=== PATIENT | female | born 1940 | race Caucasian/White ===

== ENCOUNTER 2018-03-04 08:16 | Outpatient (CLI) | payer MEDICARE, BC, SELFPAY ==
[2018-03-04 14:55] LABS: PROTEIN < 6.0 mg/dL
[2018-03-04 14:57] LABS: COMMENT (LAB VIEW ONLY) 20.59 mg/dL
== END 2018-03-04 08:36 ==
PROVIDERS: PCP Family Medicine; Visit Provider Obstetrics & Gynecology Gynecologic Oncology
DX: C56.9 Malignant neoplasm of unspecified ovary (principal)
CPT/HCPCS: 82565; 84156

== ENCOUNTER 2018-03-14 02:15 | Outpatient (CLI) | payer MEDICARE, BC, SELFPAY ==
[2018-03-14 08:59] LABS: Abs Immature Grans 0.02 k/cumm (0.0-0.09); Absolute Basophil Count 0.01 k/cumm (0.0-0.2); Absolute Eosinophil Count 0.18 k/cumm (0.0-0.7); Absolute Lymphocyte Count 1.22 k/cumm (1.2-3.4); Absolute Monocyte Count 0.04 k/cumm (0.11-0.7); Basophils % 0.3; Eosinophils % 6.1; HCT 33.9 % (36.0-46.0); HGB 10.6 g/dL (12.0-15.5); Immature Grans % 0.7; Lymphocytes % 41.1; Mean Corp. HGB Concentration 31.3 g/dL (32.0-36.0); Mean Corpuscular Hemoglobin 25.1 pg (27.0-33.0); Mean Corpuscular Volume 80.3 fL (80-95); Monocytes % 1.3; Neutrophils % 50.5; Platelet Count 246 x1000/uL (130-400); RBC 4.22 m/cumm (4.00-5.20); RBC Distribution Width 13.7 % (11.7-14.6); White Blood Cell Count 2.97 k/cumm (4.4-10.8)
== END 2018-03-14 02:35 ==
PROVIDERS: PCP Family Medicine; Visit Provider Obstetrics & Gynecology Gynecologic Oncology
DX: C56.9 Malignant neoplasm of unspecified ovary (principal)
CPT/HCPCS: 36415; 85025

== ENCOUNTER 2018-03-21 01:15 | Outpatient (CLI) | payer MEDICARE, BC, SELFPAY ==
[2018-03-21 09:22] LABS: Abs Immature Grans 0.02 k/cumm (0.0-0.09); Absolute Basophil Count 0.04 k/cumm (0.0-0.2); Absolute Eosinophil Count 0.12 k/cumm (0.0-0.7); Absolute Lymphocyte Count 1.34 k/cumm (1.2-3.4); Absolute Monocyte Count 0.43 k/cumm (0.11-0.7); Basophils % 1.4; Eosinophils % 4.1; HCT 33.5 % (36.0-46.0); HGB 10.5 g/dL (12.0-15.5); Immature Grans % 0.7; Lymphocytes % 45.4; Mean Corp. HGB Concentration 31.3 g/dL (32.0-36.0); Mean Corpuscular Hemoglobin 25.3 pg (27.0-33.0); Mean Corpuscular Volume 80.7 fL (80-95); Mean Platelet Volume 9.1 fL (8.0-11.0); Monocytes % 14.6; Neutrophils % 33.8; Platelet Count 176 x1000/uL (130-400); RBC 4.15 m/cumm (4.00-5.20); RBC Distribution Width 13.9 % (11.7-14.6); White Blood Cell Count 2.95 k/cumm (4.4-10.8)
== END 2018-03-21 01:35 ==
PROVIDERS: PCP Family Medicine; Visit Provider Obstetrics & Gynecology Gynecologic Oncology
DX: C56.9 Malignant neoplasm of unspecified ovary (principal)
CPT/HCPCS: 36415; 85025

== ENCOUNTER 2018-04-08 01:58 | Outpatient (CLI) | payer MEDICARE, BC, SELFPAY ==
[2018-04-08 09:11] LABS: Abs Immature Grans 0.01 k/cumm (0.0-0.09); Absolute Basophil Count 0.01 k/cumm (0.0-0.2); Absolute Eosinophil Count 0.18 k/cumm (0.0-0.7); Absolute Lymphocyte Count 1.17 k/cumm (1.2-3.4); Absolute Monocyte Count 0.11 k/cumm (0.11-0.7); Absolute Neutrophil Count 1.52 k/cumm (1.2-6.7); Basophils % 0.3; HCT 32.7 % (36.0-46.0); HGB 10.7 g/dL (12.0-15.5); Immature Grans % 0.3; Mean Corp. HGB Concentration 32.7 g/dL (32.0-36.0); Mean Corpuscular Hemoglobin 26.2 pg (27.0-33.0); Mean Corpuscular Volume 80.1 fL (80-95); Mean Platelet Volume 9.8 fL (8.0-11.0); Monocytes % 3.7; Neutrophils % 50.7; Platelet Count 358 x1000/uL (130-400); RBC 4.08 m/cumm (4.00-5.20); RBC Distribution Width 15.7 % (11.7-14.6)
== END 2018-04-08 02:18 ==
PROVIDERS: PCP Family Medicine; Visit Provider Obstetrics & Gynecology Gynecologic Oncology
DX: C56.9 Malignant neoplasm of unspecified ovary (principal)
CPT/HCPCS: 36415; 85025

== ENCOUNTER 2018-04-15 02:28 | Outpatient (CLI) | payer MEDICARE, BC, SELFPAY ==
[2018-04-15 09:04] LABS: HCT 33.4 % (36.0-46.0); Mean Corp. HGB Concentration 32.9 g/dL (32.0-36.0); Mean Corpuscular Hemoglobin 26.3 pg (27.0-33.0); Mean Corpuscular Volume 79.9 fL (80-95); Platelet Count 213 x1000/uL (130-400); RBC 4.18 m/cumm (4.00-5.20); RBC Distribution Width 17.1 % (11.7-14.6); White Blood Cell Count 3.56 k/cumm (4.4-10.8)
[2018-04-15 09:28] LABS: Absolute Basophil Count 0.07 k/cumm (0.0-0.2); Absolute Eosinophil Count 0.14 k/cumm (0.0-0.7); Absolute Lymphocyte Count 1.92 k/cumm (1.2-3.4); Absolute Monocyte Count 0.39 k/cumm (0.11-0.7); Absolute Neutrophil Count 1.03 k/cumm (1.2-6.7); Anisocytosis 2+; Atypical Lymphocytes % 2; Diff Comment Manual Differential; Hypochromasia 1+
[2018-04-15 09:29] LABS: Microcytosis 2+; Ovalocytes 2+; Polychromasia Present
== END 2018-04-15 02:48 ==
PROVIDERS: PCP Family Medicine; Visit Provider Obstetrics & Gynecology Gynecologic Oncology
DX: C56.9 Malignant neoplasm of unspecified ovary (principal)
CPT/HCPCS: 36415; 85025

== ENCOUNTER 2018-04-28 01:45 | Outpatient (CLI) | payer MEDICARE, BC, SELFPAY ==
[2018-04-28 13:21] LABS: Abs Immature Grans 0.01 k/cumm (0.0-0.09); Absolute Basophil Count 0.01 k/cumm (0.0-0.2); Absolute Eosinophil Count 0.13 k/cumm (0.0-0.7); Absolute Lymphocyte Count 1.18 k/cumm (1.2-3.4); Absolute Monocyte Count 0.04 k/cumm (0.11-0.7); Absolute Neutrophil Count 1.37 k/cumm (1.2-6.7); Basophils % 0.4; Eosinophils % 4.7; HCT 31.6 % (36.0-46.0); HGB 10.1 g/dL (12.0-15.5); Immature Grans % 0.4; Lymphocytes % 43.1; Mean Corpuscular Hemoglobin 26.3 pg (27.0-33.0); Mean Corpuscular Volume 82.3 fL (80-95); Mean Platelet Volume 9.6 fL (8.0-11.0); Monocytes % 1.5; Neutrophils % 49.9; Platelet Count 192 x1000/uL (130-400); RBC 3.84 m/cumm (4.00-5.20); RBC Distribution Width 18.6 % (11.7-14.6); White Blood Cell Count 2.74 k/cumm (4.4-10.8)
[2018-04-28 13:53] LABS: Anisocytosis 2+; Diff Comment Diff Reviewed; Hypochromasia 1+; Microcytosis 1+
[2018-04-28 13:54] LABS: Poikilocytes 2+
== END 2018-04-28 02:05 ==
PROVIDERS: PCP Family Medicine; Visit Provider Obstetrics & Gynecology Gynecologic Oncology
DX: C56.9 Malignant neoplasm of unspecified ovary (principal)
CPT/HCPCS: 36415; 85025

== ENCOUNTER 2018-05-05 01:19 | Outpatient (CLI) | payer MEDICARE, BC, SELFPAY ==
[2018-05-05 11:02] LABS: Absolute Basophil Count 0.01 k/cumm (0.0-0.2); Absolute Eosinophil Count 0.09 k/cumm (0.0-0.7); Absolute Lymphocyte Count 1.48 k/cumm (1.2-3.4); Absolute Monocyte Count 0.37 k/cumm (0.11-0.7); Basophils % 0.4; Eosinophils % 3.8; HCT 30.8 % (36.0-46.0); HGB 10.1 g/dL (12.0-15.5); Lymphocytes % 62.4; Mean Corp. HGB Concentration 32.8 g/dL (32.0-36.0); Mean Corpuscular Hemoglobin 26.7 pg (27.0-33.0); Mean Corpuscular Volume 81.5 fL (80-95); Mean Platelet Volume 8.7 fL (8.0-11.0); Monocytes % 15.6; Neutrophils % 17.8; Platelet Count 135 x1000/uL (130-400); RBC 3.78 m/cumm (4.00-5.20); RBC Distribution Width 18.9 % (11.7-14.6); White Blood Cell Count 2.37 k/cumm (4.4-10.8)
[2018-05-05 11:31] LABS: Absolute Neutrophil Count 0.42 k/cumm (1.2-6.7)
[2018-05-05 11:32] LABS: Anisocytosis 2+; Diff Comment Agrees w/ Instrument; Poikilocytes 1+; Polychromasia Present
== END 2018-05-05 01:39 ==
PROVIDERS: PCP Family Medicine; Visit Provider Obstetrics & Gynecology Gynecologic Oncology
DX: C56.9 Malignant neoplasm of unspecified ovary (principal)
CPT/HCPCS: 36415; 85025

== ENCOUNTER 2018-05-20 02:20 | Outpatient (CLI) | payer MEDICARE, BC, SELFPAY ==
[2018-05-20 09:13] LABS: Abs Immature Grans 0.01 k/cumm (0.0-0.09); Absolute Basophil Count 0.02 k/cumm (0.0-0.2); Absolute Eosinophil Count 0.04 k/cumm (0.0-0.7); Absolute Lymphocyte Count 1.32 k/cumm (1.2-3.4); Absolute Monocyte Count 0.05 k/cumm (0.11-0.7); Absolute Neutrophil Count 0.57 k/cumm (1.2-6.7); HCT 31.2 % (36.0-46.0); HGB 10.2 g/dL (12.0-15.5); Immature Grans % 0.5; Lymphocytes % 65.7; Mean Corp. HGB Concentration 32.7 g/dL (32.0-36.0); Mean Corpuscular Hemoglobin 27.4 pg (27.0-33.0); Mean Corpuscular Volume 83.9 fL (80-95); Mean Platelet Volume 9.4 fL (8.0-11.0); Monocytes % 2.5; Neutrophils % 28.3; RBC 3.72 m/cumm (4.00-5.20); RBC Distribution Width 21.8 % (11.7-14.6); White Blood Cell Count 2.01 k/cumm (4.4-10.8)
[2018-05-20 09:25] LABS: Anisocytosis 2+; Diff Comment Diff Reviewed; Ovalocytes 2+; Platelet Count 381 x1000/uL (130-400); Poikilocytes 2+
== END 2018-05-20 02:40 ==
PROVIDERS: PCP Family Medicine; Visit Provider Obstetrics & Gynecology Gynecologic Oncology
DX: C56.9 Malignant neoplasm of unspecified ovary (principal)
CPT/HCPCS: 36415; 85025

== ENCOUNTER 2018-05-27 01:34 | Outpatient (CLI) | payer MEDICARE, BC, SELFPAY ==
[2018-05-27 08:57] LABS: Abs Immature Grans 0.03 k/cumm (0.0-0.09); Absolute Basophil Count 0.02 k/cumm (0.0-0.2); Absolute Eosinophil Count 0.04 k/cumm (0.0-0.7); Absolute Lymphocyte Count 1.29 k/cumm (1.2-3.4); Absolute Monocyte Count 0.51 k/cumm (0.11-0.7); Absolute Neutrophil Count 0.95 k/cumm (1.2-6.7); Basophils % 0.7; Eosinophils % 1.4; HCT 30.6 % (36.0-46.0); HGB 10.1 g/dL (12.0-15.5); Immature Grans % 1.1; Lymphocytes % 45.4; Mean Corpuscular Hemoglobin 27.8 pg (27.0-33.0); Mean Corpuscular Volume 84.3 fL (80-95); Mean Platelet Volume 8.4 fL (8.0-11.0); Neutrophils % 33.4; RBC 3.63 m/cumm (4.00-5.20); RBC Distribution Width 22.7 % (11.7-14.6); White Blood Cell Count 2.84 k/cumm (4.4-10.8)
[2018-05-27 09:23] LABS: Anisocytosis 3+; Diff Comment Agrees w/ Instrument; Polychromasia Present
[2018-05-27 09:24] LABS: Platelet Count 168 x1000/uL (130-400); Poikilocytes 1+
[2018-05-27 10:04] LABS: Anion Gap 8.8 mmol/L (3-11); BUN 14 mg/dL (7-18); CO2 28.2 mmol/L (21.0-32.0); CREATININE 0.91 mg/dL (0.55-1.02); Calcium 8.8 mg/dL (8.5-10.1); Chloride 103 mmol/L (98-107); Cholesterol 253 mg/dL (50-200); Estimated GFR 59.63 (mL/min/1.73m2); Glucose 93 mg/dL (70-100); HDL Cholesterol 96 mg/dL (40-60); LDL CHOLESTEROL 138 mg/dL (<100); Potassium 3.9 mmol/L (3.5-5.1); Sodium 140 mmol/L (136-145); Triglyceride 114 mg/dL (30-150)
== END 2018-05-27 01:54 ==
PROVIDERS: PCP Family Medicine; Visit Provider Obstetrics & Gynecology Gynecologic Oncology
DX: I10 Essential (primary) hypertension (principal); E78.5 Hyperlipidemia, unspecified; C56.9 Malignant neoplasm of unspecified ovary
CPT/HCPCS: 36415; 80048; 80061; 83721; 85025

== ENCOUNTER 2018-06-09 05:58 | Outpatient (CLI) | payer MEDICARE, BC, SELFPAY ==
[2018-06-09 10:25] LABS: Abs Immature Grans 0.01 k/cumm (0.0-0.09); Absolute Basophil Count 0.02 k/cumm (0.0-0.2); Absolute Eosinophil Count 0.08 k/cumm (0.0-0.7); Absolute Lymphocyte Count 1.22 k/cumm (1.2-3.4); Absolute Monocyte Count 0.11 k/cumm (0.11-0.7); Absolute Neutrophil Count 1.96 k/cumm (1.2-6.7); Basophils % 0.6; Eosinophils % 2.4; HCT 28.3 % (36.0-46.0); Immature Grans % 0.3; Lymphocytes % 35.9; Mean Corp. HGB Concentration 31.8 g/dL (32.0-36.0); Mean Corpuscular Hemoglobin 27.8 pg (27.0-33.0); Mean Corpuscular Volume 87.3 fL (80-95); Mean Platelet Volume 9.5 fL (8.0-11.0); Monocytes % 3.2; Neutrophils % 57.6; Platelet Count 186 x1000/uL (130-400); RBC 3.24 m/cumm (4.00-5.20); RBC Distribution Width 23.2 % (11.7-14.6)
[2018-06-09 12:02] LABS: Uric Acid 4.8 mg/dL (2.6-6.0)
[2018-06-09 12:07] LABS: Anisocytosis 3+; Diff Comment RBC Morph Reviewed; Ovalocytes 2+; Poikilocytes 2+
== END 2018-06-09 06:18 ==
PROVIDERS: PCP Family Medicine; Visit Provider Internal Medicine
DX: C56.9 Malignant neoplasm of unspecified ovary (principal); M79.676 Pain in unspecified toe(s)
CPT/HCPCS: 36415; 84550; 85025

== ENCOUNTER 2018-06-16 09:14 | Outpatient (CLI) | payer MEDICARE, BC, SELFPAY ==
[2018-06-16 10:00] LABS: Abs Immature Grans 0.02 k/cumm (0.0-0.09); Absolute Basophil Count 0.03 k/cumm (0.0-0.2); Absolute Monocyte Count 0.83 k/cumm (0.11-0.7); HCT 28.7 % (36.0-46.0); Mean Corp. HGB Concentration 31.4 g/dL (32.0-36.0); Mean Corpuscular Hemoglobin 28.6 pg (27.0-33.0); Mean Corpuscular Volume 91.1 fL (80-95); Mean Platelet Volume 9.3 fL (8.0-11.0); Platelet Count 198 x1000/uL (130-400); RBC 3.15 m/cumm (4.00-5.20)
[2018-06-16 10:42] LABS: Absolute Lymphocyte Count 1.54 k/cumm (1.2-3.4); Atypical Lymphocytes % 1
[2018-06-16 10:43] LABS: Absolute Eosinophil Count 0.03 k/cumm (0.0-0.7); Anisocytosis 2+; Diff Comment Manual Differential; Macrocytosis 1+; Microcytosis 1+; Polychromasia Present
[2018-06-16 10:44] LABS: Poikilocytes 2+
[2018-06-16 10:50] LABS: Absolute Neutrophil Count 0.77 k/cumm (1.2-6.7)
== END 2018-06-16 09:34 ==
PROVIDERS: PCP Family Medicine; Visit Provider Obstetrics & Gynecology Gynecologic Oncology
DX: C56.9 Malignant neoplasm of unspecified ovary (principal)
CPT/HCPCS: 36415; 85025

== ENCOUNTER 2018-06-30 02:30 | Outpatient (CLI) | payer MEDICARE, BC, SELFPAY ==
[2018-06-30 10:18] LABS: Abs Immature Grans 0.01 k/cumm (0.0-0.09); Absolute Basophil Count 0.01 k/cumm (0.0-0.2); Absolute Eosinophil Count 0.05 k/cumm (0.0-0.7); Absolute Lymphocyte Count 1.19 k/cumm (1.2-3.4); Absolute Monocyte Count 0.05 k/cumm (0.11-0.7); Absolute Neutrophil Count 0.95 k/cumm (1.2-6.7); Basophils % 0.4; Eosinophils % 2.2; HCT 26.3 % (36.0-46.0); HGB 8.5 g/dL (12.0-15.5); Immature Grans % 0.4; Lymphocytes % 52.7; Mean Corp. HGB Concentration 32.3 g/dL (32.0-36.0); Mean Corpuscular Hemoglobin 30.6 pg (27.0-33.0); Mean Corpuscular Volume 94.6 fL (80-95); Mean Platelet Volume 9.7 fL (8.0-11.0); Monocytes % 2.2; Neutrophils % 42.1; Platelet Count 135 x1000/uL (130-400); RBC 2.78 m/cumm (4.00-5.20); RBC Distribution Width 21.1 % (11.7-14.6); White Blood Cell Count 2.26 k/cumm (4.4-10.8)
[2018-06-30 11:16] LABS: ALT 19 U/L (12-78); AST 21 U/L (15-37); Albumin 3.3 g/dL (3.4-5.0); Alkaline Phosphatase 76 U/L (46-116); Anion Gap 8.7 mmol/L (3-11); BUN 26 mg/dL (7-18); Bilirubin, Total 0.4 mg/dL (0.2-1.0); CO2 27.3 mmol/L (21.0-32.0); CREATININE 0.99 mg/dL (0.55-1.02); Calcium 8.7 mg/dL (8.5-10.1); Chloride 103 mmol/L (98-107); Estimated GFR 54.11 (mL/min/1.73m2); Glucose 92 mg/dL (70-100); Potassium 4.4 mmol/L (3.5-5.1); Sodium 139 mmol/L (136-145); Total Protein 6.9 g/dL (6.4-8.2)
[2018-06-30 11:31] LABS: Anisocytosis 2+; Diff Comment Diff Reviewed; Ovalocytes 2+
== END 2018-06-30 02:50 ==
PROVIDERS: Obstetrics & Gynecology Gynecologic Oncology; PCP Family Medicine; Visit Provider Internal Medicine
DX: C56.9 Malignant neoplasm of unspecified ovary (principal)
CPT/HCPCS: 36415; 80053; 85025

== ENCOUNTER 2018-07-02 01:12 | Outpatient (CLI) | payer MEDICARE, BC, SELFPAY ==
--- NOTE | 2018-07-02 10:46 | DI.MAMMO_ITS ---
SYMPTOMS/DIAGNOSIS: SCREENING, Z12.39 MAMMOGRAM: Mammograms were interpreted according to the usual protocol including computer analysis with CAD system, tomosynthesis and C view imaging. Comparison with prior examinations. Breast density B. No suspicious microcalcifications or masses are seen. There is asymmetric density at the 6:00 o'clock position of the right breast. This area should be further evaluated with spot compression view. Ultrasound may be indicated at that time. IMPRESSION: Additional views of the right breast as described above. Category 0. Breast density B. [facility] ASSESSMENT OF FINDINGS: Incomplete: Needs additional imaging evaluation. Category 0. Patient will receive a letter notifying them of these results. BI-RADS category B. There are scattered areas of fibroglandular density.
== END 2018-07-02 01:32 ==
PROVIDERS: PCP Family Medicine; Visit Provider Family Medicine
DX: Z12.31 Encounter for screening mammogram for malignant neoplasm of breast (principal); R92.8 Other abnormal and inconclusive findings on diagnostic imaging of breast
CPT/HCPCS: 77063; 77067

== ENCOUNTER 2018-07-04 00:23 | Outpatient (CLI) | payer MEDICARE, BC, SELFPAY ==
--- NOTE | 2018-07-04 14:29 | DI.COMBO_ITS ---
SYMPTOMS/DIAGNOSIS: F/U MAMMO, RT BREAST ASYMMETRIC DENSITY 6 O'CLOCK ADDITIONAL VIEWS OF THE RIGHT BREAST AND RIGHT BREAST ULTRASOUND: Additional images are interpreted according to the usual protocol including tomosynthesis and 2D imaging. Additional views of the right breast fail to show a definite discrete mass. A right breast ultrasound was performed in the area of concern. No cystic or solid masses are seen. IMPRESSION: No definite evidence for malignancy. A six-month follow-up right mammogram is requested for reevaluation. Category 3, breast density B. The findings were discussed with the patient on the date of the examination. [facility] ASSESSMENT OF FINDINGS: Probably benign. Six month follow-up recommended. Category 3. Patient will receive a letter notifying them of these results. BI-RADS category B. There are scattered areas of fibroglandular density.
== END 2018-07-04 00:43 ==
PROVIDERS: PCP Family Medicine; Visit Provider Family Medicine
DX: Z12.31 Encounter for screening mammogram for malignant neoplasm of breast (principal); R92.8 Other abnormal and inconclusive findings on diagnostic imaging of breast; N64.59 Other signs and symptoms in breast
CPT/HCPCS: 76642; 77063; 77067

== ENCOUNTER 2018-07-07 02:57 | Outpatient (CLI) | payer MEDICARE, BC, SELFPAY ==
[2018-07-07 11:27] LABS: Absolute Eosinophil Count 0.02 k/cumm (0.0-0.7); HCT 27.2 % (36.0-46.0); HGB 8.6 g/dL (12.0-15.5); Mean Corp. HGB Concentration 31.6 g/dL (32.0-36.0); Mean Corpuscular Hemoglobin 30.9 pg (27.0-33.0); Mean Corpuscular Volume 97.8 fL (80-95); Mean Platelet Volume 9.5 fL (8.0-11.0); Platelet Count 161 x1000/uL (130-400); RBC 2.78 m/cumm (4.00-5.20); RBC Distribution Width 20.6 % (11.7-14.6)
[2018-07-07 11:59] LABS: ALT 19 U/L (12-78); AST 19 U/L (15-37); Albumin 3.3 g/dL (3.4-5.0); Alkaline Phosphatase 90 U/L (46-116); Anion Gap 9.1 mmol/L (3-11); BUN 13 mg/dL (7-18); Bilirubin, Total 0.2 mg/dL (0.2-1.0); CO2 27.9 mmol/L (21.0-32.0); CREATININE 0.99 mg/dL (0.55-1.02); Calcium 8.6 mg/dL (8.5-10.1); Chloride 103 mmol/L (98-107); Estimated GFR 54.11 (mL/min/1.73m2); Glucose 99 mg/dL (70-100); Potassium 4.1 mmol/L (3.5-5.1); Sodium 140 mmol/L (136-145); Total Protein 7.1 g/dL (6.4-8.2)
[2018-07-07 13:56] LABS: White Blood Cell Count 1.53 k/cumm (4.4-10.8)
[2018-07-07 13:57] LABS: Absolute Lymphocyte Count 1.01 k/cumm (1.2-3.4); Absolute Neutrophil Count 0.18 k/cumm (1.2-6.7)
[2018-07-07 13:58] LABS: Absolute Monocyte Count 0.32 k/cumm (0.11-0.7); Anisocytosis 2+; Atypical Lymphocytes % 4; Diff Comment Manual Differential; Hypochromasia 1+; Polychromasia Present
[2018-07-07 13:59] LABS: Poikilocytes 1+
== END 2018-07-07 03:17 ==
PROVIDERS: PCP Family Medicine; Visit Provider Obstetrics & Gynecology Gynecologic Oncology
DX: C56.9 Malignant neoplasm of unspecified ovary (principal)
CPT/HCPCS: 36415; 80053; 85025

== ENCOUNTER 2018-08-04 15:17 | Outpatient (CLI) | payer MEDICARE, BC, SELFPAY ==
[2018-08-04 15:34] LABS: Abs Immature Grans 0.01 k/cumm (0.0-0.09); Absolute Basophil Count 0.04 k/cumm (0.0-0.2); Absolute Eosinophil Count 0.12 k/cumm (0.0-0.7); Absolute Lymphocyte Count 1.59 k/cumm (1.2-3.4); Basophils % 0.6; Eosinophils % 1.7; HCT 34.9 % (36.0-46.0); HGB 11.3 g/dL (12.0-15.5); Immature Grans % 0.1; Lymphocytes % 23.2; Mean Corp. HGB Concentration 32.4 g/dL (32.0-36.0); Mean Corpuscular Hemoglobin 31.8 pg (27.0-33.0); Mean Corpuscular Volume 98.3 fL (80-95); Mean Platelet Volume 8.6 fL (8.0-11.0); Monocytes % 5.8; Neutrophils % 68.6; Platelet Count 284 x1000/uL (130-400); RBC 3.55 m/cumm (4.00-5.20); RBC Distribution Width 15.4 % (11.7-14.6); White Blood Cell Count 6.86 k/cumm (4.4-10.8)
[2018-08-04 16:34] LABS: ALT 21 U/L (12-78); AST 22 U/L (15-37); Albumin 3.8 g/dL (3.4-5.0); Alkaline Phosphatase 85 U/L (46-116); Anion Gap 10.5 mmol/L (3-11); BUN 19 mg/dL (7-18); Bilirubin, Total 0.3 mg/dL (0.2-1.0); CO2 27.5 mmol/L (21.0-32.0); CREATININE 0.97 mg/dL (0.55-1.02); Calcium 9.2 mg/dL (8.5-10.1); Chloride 100 mmol/L (98-107); Glucose 91 mg/dL (70-100); Magnesium 1.9 mg/dL (1.8-2.4); Potassium 3.7 mmol/L (3.5-5.1); Sodium 138 mmol/L (136-145); Total Protein 7.9 g/dL (6.4-8.2)
== END 2018-08-04 15:37 ==
PROVIDERS: PCP Family Medicine; Visit Provider Obstetrics & Gynecology Gynecologic Oncology
DX: C56.9 Malignant neoplasm of unspecified ovary (principal)
CPT/HCPCS: 36415; 80053; 83735; 85025

== ENCOUNTER 2019-01-07 00:46 | Outpatient (CLI) | payer MEDICARE, BC, SELFPAY ==
--- NOTE | 2019-01-07 10:00 | DI.MAMMO_ITS ---
SYMPTOM/DIAGNOSIS: F/U MAMMO, 6 MO F/U RIGHT MAMMOGRAM: Mammograms were interpreted according to the usual protocol including computer analysis with CAD system, tomosynthesis and C view imaging. Comparison is made with 07/02 and 07/04/18 as well as exams back to 2016. The right breast is composed of scattered fibroglandular densities, breast density, Category B. No suspicious masses or suspicious calcifications are seen. The previously questioned area of asymmetric density is not seen on the current exam. IMPRESSION: Category 1, negative mammogram. Bilateral screening should be resumed in 6 months. [facility] ASSESSMENT OF FINDINGS: Negative. Category 1. Patient will receive a letter notifying them of these results. BI-RADS category B. There are scattered areas of fibroglandular density.
== END 2019-01-07 01:06 ==
PROVIDERS: PCP Family Medicine; Visit Provider Family Medicine
DX: Z12.31 Encounter for screening mammogram for malignant neoplasm of breast (principal); R92.8 Other abnormal and inconclusive findings on diagnostic imaging of breast; N64.59 Other signs and symptoms in breast
CPT/HCPCS: 77061; 77065; G0279

== ENCOUNTER 2019-05-29 10:19 | Outpatient (CLI) | payer MEDICARE, BC, SELFPAY ==
[2019-05-29 10:43] LABS: HCT 40.7 % (36.0-46.0); HGB 13.5 g/dL (12.0-15.5); Mean Corp. HGB Concentration 33.2 g/dL (32.0-36.0); Mean Corpuscular Hemoglobin 29.2 pg (27.0-33.0); Mean Corpuscular Volume 88.1 fL (80-95); Mean Platelet Volume 8.9 fL (8.0-11.0); Platelet Count 266 x1000/uL (130-400); RBC 4.62 m/cumm (4.00-5.20); White Blood Cell Count 7.46 k/cumm (4.4-10.8)
[2019-05-29 11:14] LABS: ALT 27 U/L (14-59); AST 25 U/L (15-37); Albumin 3.4 g/dL (3.4-5.0); Alkaline Phosphatase 76 U/L (46-116); Anion Gap 7.8 mmol/L (3-11); BUN 14 mg/dL (7-18); Bilirubin, Total 0.4 mg/dL (0.2-1.0); CO2 28.2 mmol/L (21.0-32.0); CREATININE 1.05 mg/dL (0.55-1.02); Calcium 8.8 mg/dL (8.5-10.1); Chloride 103 mmol/L (98-107); Estimated GFR 50.43 (mL/min/1.73m2); Glucose 109 mg/dL (74-106); Potassium 4.4 mmol/L (3.5-5.1); Sodium 139 mmol/L (136-145); Total Protein 7.3 g/dL (6.4-8.2)
== END 2019-05-29 10:39 ==
PROVIDERS: PCP Family Medicine; Visit Provider Family Medicine
DX: I10 Essential (primary) hypertension (principal)
CPT/HCPCS: 36415; 80053; 85027